=== PATIENT | female | born 1935 | race African-American/Black ===

== ENCOUNTER 2021-07-27 14:24 | Inpatient (IN) | payer OTHER ==
[2021-07-27] VITALS (11 sets, daily range): BP systolic 140–238; BP diastolic 50–96
[~2021-07-27] VITALS: Ht 175.3 cm; Wt 75.7 kg
[2021-07-27 15:16] LABS: HEMATOCRIT 38.6 % (37.0-47.0); HEMOGLOBIN 12.7 gm/dL (12.0-15.0); MCHC 32.9 g/dL (28.0-37.0); MCV 85.3 fL (80.0-100.0); RBC 4.53 mil/uL (4.20-5.00); RDW 13.1 % (10.5-14.5); WBC 6.6 thou/uL (4.0-11.0)
[2021-07-27 15:23] LABS: CALCIUM 9.4 mg/dL (8.5-10.1); CREATININE 1.5 mg/dL (0.6-1.0); POTASSIUM 4.1 mmol/L (3.5-5.1)
[2021-07-27 15:34] LABS: ALBUMIN 3.6 g/dL (3.4-5.0); TOTAL BILIRUBIN 0.3 mg/dL (0.2-1.0); TOTAL PROTEIN 7.8 g/dL (6.4-8.2)
[2021-07-27] MEDS ORDERED: LIPITOR40 MG PO (15:36)
[2021-07-27] MEDS ORDERED: ASA81BEC PO (15:36)
[2021-07-27] MEDS ORDERED: TOPROL XL50 MG PO (15:36)
[2021-07-27] MEDS ORDERED: DONEPEZIL HCL 55 M1 PO (15:37)
[2021-07-27] MEDS ORDERED: CHLORTHALIDONE25 MG PO (15:37)
[2021-07-27] MEDS ORDERED: LOSARTAN-HCTZ1 EAC3 PO (15:38)
[2021-07-27 16:00] LABS: URINE BILIRUBIN NEGATIVE (Negative); URINE BLOOD TRACE (Negative); URINE CLARITY SL CLOUDY; URINE COLOR YELLOW; URINE GLUCOSE-RANDOM* NEGATIVE (Negative); URINE KETONES NEGATIVE (Negative); URINE NITRITE-REFLEX NEGATIVE (Negative); URINE PROTEIN (DIPSTICK) 2+ (Negative); URINE SPECIFIC GRAVITY 1.025 (1.005-1.035); URINE UROBILINOGEN 0.2 E.U./dl (0.2-1.0)
[2021-07-27 16:06] LABS: URINE LEUKOCYTES-REFLEX 1+ (Negative)
--- NOTE | 2021-07-27 16:16 | EKG ---
[address] [place] [address] ELECTROCARDIOGRAM REPORT Name: YA GUTIERREZ Room #: REG BECKY Gardner#: [id number] Admission: 07/27/21 Attend Phys: Discharge: Date of : 37 Report #: [id number] [facility] ED Test Date: 2021-07-27 Test Time: 14:53:33 Pat Name: YA GUTIERREZ Department: Room: Gender: F [facility] Worker: : 1935 Requested By: Joanne Terry Order Number: [id number] MD: Jose Malik Measurements Intervals [place] Rate: 99 P: 68 IA: 153 QRS: 53 QRSD: 83 T: 44 QT: 348 QTc: 447 Interpretive Statements Sinus rhythm Nonspecific ST segment abnormality No previous ECG available for comparison Electronically Signed On 07-27-2021 16:16:14 [employer] by Jose Malik [email or web address] <ELECTRONICALLY SIGNED> By: Jose Malik MD, [facility] 07/27/21 1616 [id number] [id number] Jose Malik MD, FACC /EPI
[2021-07-27 17:02] LABS: BACTERIA-REFLEX >30 Many /HPF (None Seen); CASTS None Seen /LPF (None Seen); CRYSTALS None Seen /LPF (None Seen); SQUAMOUS 4-10 Moderate /LPF (0-3); URINE RBC 1-2 Rare /HPF (NONE SEEN); URINE WBC-REFLEX >25 Many /HPF (0-5)
--- NOTE | 2021-07-27 20:15 | NUR ---
REPORT TO RECEIVING RN.
[2021-07-28] VITALS (56 sets, daily range): BP systolic 126–186; BP diastolic 50–84
--- NOTE | 2021-07-28 02:43 | NUR ---
PT ADMITTED FROM THE ED. PT IS AWAKE ALERT AND ORIENTED. PT ADMITTED FOR HYPERTENSIVE CRISIS AND CURRENTLY HAS CARDENE INFUSING AT 0.5MG. PER REPORT, PT WAS INITIATED AT THIS RATE AND AMOUNT NEVER TITRATED PT'S B/P WAS CONSISTENTLY LESS THAN TARGET RATE OF 160 SYSTOLIC. PT DENIES ANY HEADACHES OR DIZZINESS. PT'S DAUGHTER AT BEDSIDE WITH SOME BELONGINGS FOR PT. PT ABLE TO ANSWER QUESTIONS APPROPRIATELY BUT BEHAVIOR IS VERY STOIC. PT REQUESTED TO USE A BEDPAN TO VOID. DEPENDS WAS SOILED AND PT DID NOT VOID ON BEDPAN. PT REQUESTED LIGHTS TO BE TURNED OFF SO SHE MAY GO TO SLEEP. PT OFFERS NO COMPLAINTS.
[2021-07-28 02:58] LABS: HEMATOCRIT 38.4 % (37.0-47.0); HEMOGLOBIN 12.6 gm/dL (12.0-15.0); MCH 28.2 pg (26.0-34.0); MCHC 32.8 g/dL (28.0-37.0); MCV 86.1 fL (80.0-100.0); RBC 4.46 mil/uL (4.20-5.00); RDW 13.5 % (10.5-14.5); WBC 5.9 thou/uL (4.0-11.0)
--- NOTE | 2021-07-28 06:22 | NUR ---
new bag of nicardipine hung at 0600. medication titrated from 5 mg/hr to 2.5 mg/hr. continuing to monitor B/P
[2021-07-28 06:48] LABS: CALCIUM 8.8 mg/dL (8.5-10.1); CREATININE 1.3 mg/dL (0.6-1.0); MAGNESIUM 1.8 mg/dL (1.8-2.4); POTASSIUM 3.9 mmol/L (3.5-5.1)
--- NOTE | 2021-07-28 12:58 | NUR ---
PT BP ELEVATED. NOTIFIED DR. LYNCH. DR. LYNCH ENTERED NEW MEDICATION ORDERS. WILL CONTINUE TO MONITOR
--- NOTE | 2021-07-28 18:15 | NUR ---
PT FAMILY STATED THAT PT WAS COMPLAINING OF A HEADACHE. RN TOOK BP WHICH WAS 164/80. WHEN RN TRIED TO GIVE PRN BP MEDICATION PT WAS FOUND TO BE LETHARGIC. RN WAS ABLE TO AROUSE PT. RN CALLED DR. LYNCH. SYED STATED THAT HE WANTED HOURLY NEUROLOGICAL CHECKS FOR 4 HOURS AND TO REPORT ANY CHANGES. RN WILL CONTINUE TO MONITOR
[2021-07-29] VITALS (15 sets, daily range): BP systolic 118–181; BP diastolic 54–82
--- NOTE | 2021-07-29 13:33 | NUR ---
Pt slept after breakfast-awakens easily. Denies headache, serna. Tory out when move legs-pt say hurts all the time. Attempted to get OOB to chair. Pt too weak, would not stand. last bp 136/58. Yoana po diet -appetite good. Update given to patients daughter on phone. cont plan of care
--- NOTE | 2021-07-29 17:59 | NUR ---
ASSUMED CARE OF PT AT 1700 ICU TRANSFER. VSS. AFEBRILE. NO RESPIRATORY DISTRESS. PT APPEARS ALERT AND ORIENTED HOWEVER VERY STOIC. PT COMPLAINING OF SIGNIFICANT LEFT LEG PAIN WITH ANY MOVEMENT. WILL ENDORSE TO MD AND INTELLIGENCE MANAGER NURSE. PULSES 2/2. BOWEL SOUNDS ACTIVE. PT STATED SHE DOES NOT KNOW WHEN HER LAST BOWEL MOVEMENT WAS. WILL CONTINUE TO MONITOR.
[2021-07-30 07:52] VITALS: BP 177/74
--- NOTE | 2021-07-30 08:14 | NUR ---
PT LYING IN BED. DENIES PAIN. INCONTINENT. RESTING COMFORTABLY. FREQUENT OBSERVATION.
[2021-07-30 14:10] VITALS: BP 188/86
[2021-07-30 15:53] VITALS: BP 190/86
--- NOTE | 2021-07-30 18:09 | NUR ---
Met with patient and sp with dtr. patient resides at home with son. he is at work most of day. all needs on one level but steps to enter home. Son in [place] calls daily to check on patient. Dtr reports her brother called and she had taken a shower and wrapped in towel walking around home. He reports she was confused. Dtr came to take her to ER. She reports patient administers her own medication via pill box. There was only one pill left. They are unsure if she was taking medication or not. He blood pressure high upon arrival. She is independent with bathing and dressing vessel captain. She has walk-in shower with a seat. Discussed role of casemgt and anticipate she may need post acute care. Left list of [employer] skilled list in room for dtr to review. 2 children live in town and 2 live out of town.
[2021-07-30 18:26] VITALS: BP 167/86
--- NOTE | 2021-07-30 18:30 | NUR ---
PT ASSESSED AT START OF SHIFT. PT ALERT TO SELF ONLY. THINKS SHE'S AT HER HOME. PLEASANTLY CONFUSED. ABLE TO FEED HERSELF W/ TRAY SET-UP. WORKED WITH THERAPY THIS AFTERNOON BUT ONLY ABLE TO STAND FEW SECONDS AT BESIDE. C/O PAIN WHEN REPOSTIONED IN BED BUT COULD NOT SPECIFY THE AREA OR WHAT HURT. SON HERE FOR VISIT THIS AFTERNOON.
[2021-07-30 21:32] VITALS: BP 167/69
--- NOTE | 2021-07-31 02:08 | NUR ---
Pt is alert to self. Pleasant.Incontinent.Pt exhibits pain when being repositioned or cleaned.Afebrile. BP elevated, PRN meds helping some.Pt denies headache or any nausea.
[2021-07-31 07:38] VITALS: BP 179/81
[2021-07-31 09:14] VITALS: BP 161/62
--- NOTE | 2021-07-31 09:33 | NUR ---
ASSUMED PT CARE THIS AM. PT IS ALERT & ORIENTED X2 TO SELF AND PLACE AND FORGETFUL AT TIMES. PT HAS TELE MONITOR ON AND IS ON ROOM AIR. PT IS INCONTINENT OF BLADDER AND BOWEL. NOTED ELEVATED BP AND GIVEN PO BP MEDICATIONS THIS AM AND RECHECKED BP. PT TOLERATED MEDICATION AND DIET WELL. PT IS ON THE BED WATCHING TV, BED ON THE LOWEST POSITION, SIDE RAILS UP, CALL LIGHT WITHIN REACH. WILL FOLLOW POC.
[2021-07-31 12:32] VITALS: BP 180/70
[2021-07-31 13:41] VITALS: BP 184/76
[2021-07-31 14:49] VITALS: BP 145/67
--- NOTE | 2021-07-31 16:53 | NUR ---
Spoke with dtr and discussed skilled list. She reports she spoke with brother and they really want to take her home. They plan to see how she does with therapy in am.
[2021-07-31 19:59] VITALS: BP 150/77
[2021-08-01] VITALS (9 sets, daily range): BP systolic 149–197; BP diastolic 58–92
--- NOTE | 2021-08-01 05:42 | NUR ---
ASSUMED PT CARE THIS PM. PT IS ALERT AND ORIENTED TO SELF. PT HAS C/O PAIN TO BLE AND RIGHT KNEE. PT DENIED FALLING AND BUMPING KNEE INTO ANY OBJECT.PER DAUGHTER PT USES A WALKER AT HOME BUT HAS NOT BEEN ABLE TO GET UP DURING THIS HOSPITALIZATION. PT'S DAUGHTER WOULD LIKE TO KNOW THE CAUSE OF THIS ONSET OF PAIN. NO VISIBLE SIGN OF DISTRESS WAS NOTED. FALL PRECAUTIONS IN PLACE.WILL CONTINUE TO MONITOR.
--- NOTE | 2021-08-01 09:38 | NUR ---
ASSUMED PT CARE THIS AM. NOTED ELEVATED BP. GIVEN SCHEDULED AND PRN BP MEDICATIONS. PT DAUGHTER REQUESTED TO SEE HOSPITALIST. INFORMED HOSPITALIST VIA [employer] ABOUT PT REQUEST AND ELEVATED BP. INFORMED CM WELL. PT TOLERATED DIET AND MEDICATION WELL. WILL FOLLOW POC.
--- NOTE | 2021-08-01 13:52 | NUR ---
I have reviewed the documentation by MIRZA NAIR from 08/01/21 to 08/01/21 and I concur with it. JANE TILLEY, PT, DPT
[2021-08-01 14:10] LABS: HEMATOCRIT 35.8 % (37.0-47.0); HEMOGLOBIN 11.8 gm/dL (12.0-15.0); MCH 28.4 pg (26.0-34.0); MCHC 33.1 g/dL (28.0-37.0); MCV 85.9 fL (80.0-100.0); RBC 4.17 mil/uL (4.20-5.00); RDW 13.1 % (10.5-14.5); WBC 6.5 thou/uL (4.0-11.0)
[2021-08-01 14:14] LABS: CREATININE 1.5 mg/dL (0.6-1.0)
[2021-08-01 14:21] LABS: ALBUMIN 2.7 g/dL (3.4-5.0); MAGNESIUM 1.9 mg/dL (1.8-2.4); TOTAL BILIRUBIN 0.2 mg/dL (0.2-1.0); TOTAL PROTEIN 6.8 g/dL (6.4-8.2); URIC ACID* 6.7 mg/dL (2.6-6.0)
[2021-08-02] VITALS (7 sets, daily range): BP systolic 123–197; BP diastolic 59–101
--- NOTE | 2021-08-02 03:50 | NUR ---
ASSUMED PT CARE THIS PM.PT IS ALERT AND ORIENTED X2.PT IS MORE CONFUSED,IRRITABLE AND UNCOOPERATIVE. MEDS WERE GIVEN PER EMAR ORDERS. PT IS ON RA. NO VISIBLE SIGN OF DISTRESS NOTED. FALL PRECAUTIONS IN PLACE. WILL CONTINUE TO MONITOR.
--- NOTE | 2021-08-02 08:42 | NUR ---
ASSUMED PT CARE THIS AM. PT BP WAS EXTREMELY EVELATED AGAIN THIS AM. GIVEN SCHEDULED BP MEDICATIONS. WILL RECHECK BP AGAIN IN AN HOUR. GIVEN PO MEDICATIONS THIS AM WITHOUT DIFFICULTIES. NO C/O OF PAIN, NAUSEA AND VOMITING THIS AM. PT WAS CONFUSED THIS AM AND WAS INFORMING ME THAT [place]. REORIENTED HER THAT SHE IS CURRENLTY AT [facility] BUT SHE WON'T BELIEVE IT. WILL FREQUENTLY CHECK PT AND FOLLOW POC.
[2021-08-02 10:44] LABS: CALCIUM 9.2 mg/dL (8.5-10.1); CREATININE 1.6 mg/dL (0.6-1.0); MAGNESIUM 1.9 mg/dL (1.8-2.4); POTASSIUM 4.6 mmol/L (3.5-5.1)
--- NOTE | 2021-08-02 15:59 | NUR ---
called dtr this am for skilled referral options. She reports she is still researching skilled reviews. Discussed need to send referrals as facilities are full. Did not receive return call. Called dtr again at 1600. She reports she will give me places for referrals in a.m.
[2021-08-03 08:40] VITALS: BP 170/84
--- NOTE | 2021-08-03 10:37 | NUR ---
NUTRITION: SCREEN FOR LOS. RECENT PO INTAKE 50-60% AVG. NO WT HX VS RECENT WT TO EVAL; PT WT IS WNL. NSG NOTED PT TO BE CONFUSED; AND PHYSICIAN NOTED FAMILY REPORT OF PT COGNITIVE DECLINE IN PAST 6 MONTHS. BUN 45, CR 1.6, ALBUMIN 2.7. PREDNISONE, ALLOPURINOL AND OTHER MEDS REIVEWED. CM WORKING WITH FAMILY ON PLAN FOR SKILLED PLACEMENT. ASSESS AT MILD NUTRITION RISK, WILL TRIAL ENSURE DAILY AND RD TO FOLLLOW UP BY 08/08/21.
--- NOTE | 2021-08-03 14:03 | NUR ---
PATIENT REFUSING TO LET STAFF TAKE HER BP AND GIVE HER BP MEDS
[2021-08-03 14:35] VITALS: BP 170/84
[2021-08-03] MEDS ORDERED: PREDNISONE 10 M10 M1 PO (15:14)
[2021-08-03] MEDS ORDERED: COZAAR100 MG PO (15:14)
[2021-08-03] MEDS ORDERED: ALLOPURINOL 30300 M1 PO (15:14)
[2021-08-03] MEDS ORDERED: HYDRALAZINE 2525 MG PO (15:14)
--- NOTE | 2021-08-03 16:43 | NUR ---
Called dtr this am in regard to post acute care. She reports they really want to take patient home. Discussed she is very weak and needs 24/ supervision. Dtr in agreement for home. She is agreeable for [facility] care. [facility]. Patient going to [address] [place] [id number]. Obtained walker for patient. Updated [facility] of address. No further needs
== END 2021-08-03 16:40 | disposition home health service (06) | DRG 304 ==
LOC: ER 14:24 → 4S 19:17 → EROBS 19:17 → ICU 20:24 → 4S 07-29 17:10
PROVIDERS: Nurse Practitioner Family; ADMIT Internal Medicine; ATTEND Internal Medicine
DX: I16.1 Hypertensive emergency (principal); G92.8 Other toxic encephalopathy; G45.8 Other transient cerebral ischemic attacks and related syndromes; N39.0 Urinary tract infection, site not specified; F03.90 Unspecified dementia, unspecified severity, without behavioral disturbance, psychotic disturbance, mood disturbance, and anxiety; Z20.822 Contact with and (suspected) exposure to COVID-19; I10 Essential (primary) hypertension; I25.10 Atherosclerotic heart disease of native coronary artery without angina pectoris; R53.81 Other malaise; E78.5 Hyperlipidemia, unspecified; M10.9 Gout, unspecified; M11.20 Other chondrocalcinosis, unspecified site; Z79.82 Long term (current) use of aspirin; Z91.19 Patient's noncompliance with other medical treatment and regimen; Z79.899 Other long term (current) drug therapy
CPT/HCPCS: 10078; 10100